=== PATIENT | male | born 1980 | race Caucasian/White ===

== ENCOUNTER 2017-12-17 14:46 | Emergency (ER) | payer OTHER ==
[~2017-12-17] VITALS: Ht 185.4 cm; Wt 72.6 kg
[~2017-12-17 14:46] MED LIST: ABX; ALPRAZOLAM PO; ATIVAN1 MG PO; BACTRIM DS TAB1 EACH PO; BACTROBAN CREAM30 G1 TOP; CARAFATE 1 GM TA1 G1 PO; CELEXA PO; CELEXA40 MG PO; CEPHALEXIN 500500 M2 PO; CIALIS2.5 MG PO; CITALOPRAM; FLEXERIL PO; K-DUR 20 MEQ T20 MEQ PO; KEFLEX500 MG PO; NEXIUM40 MG PO; NORCO 5-325 TA1 EAC1 PO; NORCO 5-325 TA1 EACH PO; PENICILLIN VK250 MG PO; PHENERGAN PO; REGLAN 10 MG TA10 MG PO; VALIUM5 MG PO; XANAX 0.25 MG0.25 MG PO; XANAX 0.5 MG0.5 MG PO; ZOFRAN4 MG PO
[2017-12-17 15:10] LABS: URINE BILIRUBIN NEGATIVE (Negative); URINE BLOOD NEGATIVE (Negative); URINE CLARITY CLEAR; URINE COLOR YELLOW; URINE GLUCOSE-RANDOM NEGATIVE (Negative); URINE KETONES NEGATIVE (Negative); URINE LEUKOCYTES-REFLEX NEGATIVE (Negative); URINE NITRITE-REFLEX NEGATIVE (Negative); URINE PROTEIN 2+ (Negative); URINE SPECIFIC GRAVITY 1.025 (1.005-1.030); URINE UROBILINOGEN 0.2 E.U./dl (0.2-1.0)
[2017-12-17 15:28] LABS: BACTERIA-REFLEX None Seen /HPF (None Seen); CASTS None Seen /LPF (None Seen); CRYSTALS None Seen /LPF (None Seen); SQUAMOUS NONE SEEN /LPF (0-3); URINE RBC None Seen /HPF (0-2); URINE WBC-REFLEX 0-5 Rare /HPF (0-5)
[2017-12-17] MEDS ORDERED: DOXYCYCLINE 10100 MG PO (15:49)
[2017-12-17 15:57] VITALS: BP 147/84
== END 2017-12-17 15:57 | disposition home or self-care (01) ==
LOC: M.ERS 14:46
PROVIDERS: Physician Assistant
DX: R05 Cough (principal); R36.9 Urethral discharge, unspecified; Z88.8 Allergy status to other drugs, medicaments and biological substances; F12.10 Cannabis abuse, uncomplicated

== ENCOUNTER 2018-09-30 22:27 | Emergency (ER) | payer OTHER ==
[~2018-09-30] VITALS: Ht 185.4 cm; Wt 72.6 kg
[~2018-09-30 22:27] MED LIST changes: +DOXYCYCLINE 10100 MG PO
[2018-09-30 23:12] VITALS: BP 124/80
== END 2018-09-30 23:14 | disposition home or self-care (01) ==
LOC: M.ERS 22:27
DX: S61.532D Puncture wound without foreign body of left wrist, subsequent encounter (principal); S41.131D Puncture wound without foreign body of right upper arm, subsequent encounter; F17.210 Nicotine dependence, cigarettes, uncomplicated; Z88.8 Allergy status to other drugs, medicaments and biological substances; W54.0XXD Bitten by dog, subsequent encounter

== ENCOUNTER 2018-11-13 23:01 | Emergency (ER) | payer OTHER ==
[~2018-11-13] VITALS: Ht 185.4 cm; Wt 74.8 kg
[2018-11-13] MEDS ORDERED: AUGMENTIN400 MG/53 PO (23:10)
[2018-11-13 23:58] LABS: URINE BILIRUBIN NEGATIVE (Negative); URINE BLOOD NEGATIVE (Negative); URINE CLARITY CLEAR; URINE COLOR YELLOW; URINE GLUCOSE-RANDOM NEGATIVE (Negative); URINE KETONES NEGATIVE (Negative); URINE LEUKOCYTES-REFLEX NEGATIVE (Negative); URINE NITRITE-REFLEX NEGATIVE (Negative); URINE PROTEIN NEGATIVE (Negative); URINE SPECIFIC GRAVITY >= 1.030 (1.005-1.030); URINE UROBILINOGEN 0.2 E.U./dl (0.2-1.0)
[2018-11-14 00:04] LABS: AMP/METHAMP POSITIVE (Negative); BARBITURATES Negative (Negative); BENZODIAZEPINES POSITIVE (Negative); COCAINE Negative (Negative); METHADONE Negative (Negative); OPIATES Negative (Negative); PCP Negative (Negative); THC POSITIVE (Negative)
[2018-11-14] MEDS ORDERED: PHENERGAN 25 MG25 M1 PO (00:44)
[2018-11-14] MEDS ORDERED: CIPROFLOXACIN500 M1 PO (00:44)
[2018-11-14 01:21] VITALS: BP 146/85
== END 2018-11-14 01:23 | disposition home or self-care (01) ==
LOC: M.ERS 23:01
PROVIDERS: Emergency Medicine
DX: N41.9 Inflammatory disease of prostate, unspecified (principal); Z88.8 Allergy status to other drugs, medicaments and biological substances; Z79.899 Other long term (current) drug therapy

== ENCOUNTER 2018-12-19 22:50 | Emergency (ER) | payer OTHER ==
[~2018-12-19] VITALS: Ht 185.4 cm; Wt 74.8 kg
[~2018-12-19 22:50] MED LIST changes: +AUGMENTIN400 MG/53 PO; +CIPROFLOXACIN500 M1 PO; +PHENERGAN 25 MG25 M1 PO
[2018-12-19] MEDS ORDERED: BACTRIM DS TAB1 EAC1 PO (23:27)
[2018-12-19 23:35] VITALS: BP 145/80
== END 2018-12-19 23:35 | disposition home or self-care (01) ==
LOC: M.ERS 22:50
DX: L03.113 Cellulitis of right upper limb (principal); F17.200 Nicotine dependence, unspecified, uncomplicated; Z88.8 Allergy status to other drugs, medicaments and biological substances

== ENCOUNTER 2019-02-21 16:37 | Emergency (ER) | payer OTHER ==
[~2019-02-21] VITALS: Ht 185.4 cm; Wt 70.3 kg
[~2019-02-21 16:37] MED LIST changes: +BACTRIM DS TAB1 EAC1 PO
[2019-02-21 16:43] VITALS: BP 134/85
[2019-02-21 18:02] LABS: ALBUMIN 3.4 g/dL (3.4-5.0); ALKALINE PHOSPHATASE 78 U/L (46-116); ANION GAP 11 mmol/L (7-16); BUN 20 mg/dL (7-18); CALCIUM 8.8 mg/dL (8.5-10.1); CHLORIDE 106 mmol/L (98-107); CO2 24 mmol/L (21-32); CREATININE 0.8 mg/dL (0.6-1.3); GLUCOSE 108 mg/dL (70-99); POTASSIUM 5.9 mmol/L (3.5-5.1); SGOT 41 U/L (15-37); SGPT 26 U/L (30-65); SODIUM 141 mmol/L (136-145); TOTAL BILIRUBIN 0.4 mg/dL (<0.1-1.0); TOTAL PROTEIN 6.7 g/dL (6.4-8.2); TROPONIN-I LEVEL <0.06 ng/mL (<0.06)
--- NOTE | 2019-02-22 12:31 | EKG ---
[place] [address] ELECTROCARDIOGRAM REPORT Name: VIKTOR BLAS Room: [facility]#: [id number] Admission: 02/21/19 Attend Phys: Discharge: 02/21/19 Date of : 78 Report #: [id number] THIS REPORT FOR: //name// [facility] ED Test Date: 2019-02-21 Test Time: 17:28:16 Pat Name: VIKTOR BLAS Department: Room: Gender: M Employment Security Officer: Vicki MARSHALL : 1980 Requested By: Stevan Holden Order Number: [id number] MD: Adonay Holt Measurements Intervals [place] Rate: 60 P: 70 AR: 136 QRS: 92 QRSD: 105 T: 67 QT: 419 QTc: 419 Interpretive Statements Sinus rhythm Borderline right axis deviation Probable left ventricular hypertrophy Baseline wander in lead(s) I Compared to ECG 02/19/2011 20:55:35 Prolonged QT interval no longer present Electronically Signed On 02-22-2019 12:31:14 CDT by Adonay Holt [email or web address] <ELECTRONICALLY SIGNED> By: Adonay Holt MD, [facility] 02/22/19 1231 1728 1728 Adonay Holt MD, [facility] /EPI
== END 2019-02-21 17:40 | disposition left against medical advice (07) ==
LOC: M.ERS 16:37
PROVIDERS: Nurse Practitioner Family
DX: R42 Dizziness and giddiness (principal); F17.200 Nicotine dependence, unspecified, uncomplicated; Z88.8 Allergy status to other drugs, medicaments and biological substances

== ENCOUNTER 2019-05-30 17:05 | Emergency (ER) | payer OTHER ==
[~2019-05-30] VITALS: Ht 185.4 cm; Wt 74.8 kg
[2019-05-30 17:51] LABS: URINE BILIRUBIN NEGATIVE (Negative); URINE BLOOD NEGATIVE (Negative); URINE CLARITY CLEAR; URINE COLOR YELLOW; URINE GLUCOSE-RANDOM NEGATIVE (Negative); URINE KETONES NEGATIVE (Negative); URINE LEUKOCYTES-REFLEX NEGATIVE (Negative); URINE NITRITE-REFLEX NEGATIVE (Negative); URINE PROTEIN NEGATIVE (Negative); URINE SPECIFIC GRAVITY >= 1.030 (1.005-1.030); URINE UROBILINOGEN 0.2 E.U./dl (0.2-1.0)
[2019-05-30] MEDS ORDERED: DOXYCYCLINE 10100 MG PO (18:45)
[2019-05-30] MEDS ORDERED: PHENERGAN 25 MG25 M1 PO (18:54)
[2019-05-30 19:04] VITALS: BP 130/60
== END 2019-05-30 19:05 | disposition home or self-care (01) ==
LOC: M.ERS 17:05
PROVIDERS: Nurse Practitioner Family
DX: J06.9 Acute upper respiratory infection, unspecified (principal); N34.2 Other urethritis; Z88.8 Allergy status to other drugs, medicaments and biological substances

== ENCOUNTER 2020-01-11 23:35 | Emergency (ER) | payer OTHER ==
[~2020-01-11] VITALS: Ht 185.4 cm; Wt 74.8 kg
[2020-01-12] MEDS ORDERED: MUPIROCIN1 GM TOP (00:02)
[2020-01-12] MEDS ORDERED: BACTRIM DS TAB1 EACH PO (00:02)
[2020-01-12] MEDS ORDERED: LORCET 5-325 M1 EACH PO (00:03)
[2020-01-12 00:52] VITALS: BP 120/78
== END 2020-01-12 00:52 | disposition home or self-care (01) ==
LOC: M.ERS 23:35
DX: L03.115 Cellulitis of right lower limb (principal); J34.0 Abscess, furuncle and carbuncle of nose; M25.461 Effusion, right knee

== ENCOUNTER 2020-02-19 20:12 | Emergency (ER) | payer OTHER ==
[~2020-02-19] VITALS: Ht 182.9 cm; Wt 74.8 kg
[~2020-02-19 20:12] MED LIST changes: +LORCET 5-325 M1 EACH PO; +MUPIROCIN1 GM TOP
[2020-02-19 21:24] LABS: URINE BILIRUBIN NEGATIVE (Negative); URINE BLOOD NEGATIVE (Negative); URINE CLARITY CLEAR; URINE COLOR YELLOW; URINE GLUCOSE-RANDOM NEGATIVE (Negative); URINE KETONES NEGATIVE (Negative); URINE LEUKOCYTES-REFLEX NEGATIVE (Negative); URINE NITRITE-REFLEX NEGATIVE (Negative); URINE PROTEIN NEGATIVE (Negative); URINE SPECIFIC GRAVITY >= 1.030 (1.005-1.030); URINE UROBILINOGEN 0.2 E.U./dl (0.2-1.0)
[2020-02-19 22:26] VITALS: BP 129/89
== END 2020-02-19 22:27 | disposition home or self-care (01) ==
LOC: M.ERS 20:12
PROVIDERS: Emergency Medicine
DX: R35.0 Frequency of micturition (principal); R39.15 Urgency of urination; Z20.2 Contact with and (suspected) exposure to infections with a predominantly sexual mode of transmission; Z88.8 Allergy status to other drugs, medicaments and biological substances

== ENCOUNTER 2021-03-20 19:45 | Emergency (ER) | payer OTHER ==
[~2021-03-20] VITALS: Ht 185.4 cm; Wt 72.6 kg
[2021-03-20] MEDS ORDERED: AMOXICILLIN 50500 MG PO (20:14)
[2021-03-20] MEDS ORDERED: IBUPROFEN 800800 M1 PO (20:14)
[2021-03-20 20:50] VITALS: BP 115/82
[2021-03-21] MEDS ORDERED: IBUPROFEN 800800 M1 PO (10:52)
[2021-03-21] MEDS ORDERED: NORCO5 PO (10:52)
[2021-03-21] MEDS ORDERED: PENICILLIN V P500 MG PO (10:52)
== END 2021-03-20 20:50 | disposition home or self-care (01) ==
LOC: M.ERS 19:45
DX: K02.9 Dental caries, unspecified (principal); F17.210 Nicotine dependence, cigarettes, uncomplicated; Z88.8 Allergy status to other drugs, medicaments and biological substances

== ENCOUNTER 2021-03-21 10:26 | Emergency (ER) | payer OTHER ==
[~2021-03-21] VITALS: Ht 185.4 cm; Wt 72.6 kg
[~2021-03-21 10:26] MED LIST changes: +AMOXICILLIN 50500 MG PO; +IBUPROFEN 800800 M1 PO
[2021-03-21] MEDS ORDERED: NORCO5 PO (10:52)
[2021-03-21] MEDS ORDERED: IBUPROFEN 800800 M1 PO (10:52)
[2021-03-21] MEDS ORDERED: PENICILLIN V P500 MG PO (10:52)
[2021-03-21 11:20] VITALS: BP 162/99
[2021-03-22] MEDS ORDERED: ONDANSETRON HCL4 M2 PO (16:02)
[2021-03-22] MEDS ORDERED: CLEOCIN HCL300 MG PO (16:02)
== END 2021-03-21 11:20 | disposition home or self-care (01) ==
LOC: M.ERS 10:26
DX: K02.9 Dental caries, unspecified (principal); Z88.8 Allergy status to other drugs, medicaments and biological substances

== ENCOUNTER 2021-03-22 15:04 | Emergency (ER) | payer OTHER ==
[~2021-03-22] VITALS: Ht 185.4 cm; Wt 72.6 kg
[~2021-03-22 15:04] MED LIST changes: +NORCO5 PO; +PENICILLIN V P500 MG PO
[2021-03-22] MEDS ORDERED: CLEOCIN HCL300 MG PO (16:02)
[2021-03-22] MEDS ORDERED: ONDANSETRON HCL4 M2 PO (16:02)
[2021-03-22 16:15] VITALS: BP 133/72
== END 2021-03-22 16:15 | disposition home or self-care (01) ==
LOC: M.ERS 15:04
DX: K04.7 Periapical abscess without sinus (principal); T50.995A Adverse effect of other drugs, medicaments and biological substances, initial encounter; Z88.0 Allergy status to penicillin; Z88.8 Allergy status to other drugs, medicaments and biological substances; Y92.89 Other specified places as the place of occurrence of the external cause

== ENCOUNTER 2021-06-08 12:37 | Emergency (ER) | payer OTHER ==
[~2021-06-08] VITALS: Ht 182.9 cm; Wt 74.8 kg
[~2021-06-08 12:37] MED LIST changes: +CLEOCIN HCL300 MG PO; +ONDANSETRON HCL4 M2 PO
[2021-06-08 13:43] VITALS: BP 134/72
== END 2021-06-08 13:43 | disposition home or self-care (01) ==
LOC: M.ERS 12:37
DX: U07.1 COVID-19 (principal); Z88.8 Allergy status to other drugs, medicaments and biological substances

== ENCOUNTER → 2021-12-05 | Emergency (ER) | payer OTHER ==
[~2021-12-05] VITALS: Ht 182.9 cm; Wt 74.8 kg
[~2021-12-05] MED LIST changes: +HYDROCODON-ACE1 EAC7 PO
[2021-12-05 16:11] VITALS: BP 110/70
== END ==
LOC: M.ERS 15:19
DX: K04.7 Periapical abscess without sinus (principal); Z88.0 Allergy status to penicillin

== ENCOUNTER 2021-12-13 16:55 | Emergency (ER) | payer OTHER ==
[~2021-12-13] VITALS: Ht 185.4 cm; Wt 74.8 kg
[2021-12-13 17:00] VITALS: BP 113/66
[2021-12-13] MEDS ORDERED: AMOX TR-K CLV1 EAC4 PO (17:16)
[2021-12-13] MEDS ORDERED: HYDROCODON-ACE1 EAC7 PO (17:27)
== END 2021-12-13 17:48 | disposition home or self-care (01) ==
LOC: M.ERS 16:55
DX: K04.7 Periapical abscess without sinus (principal); Z79.899 Other long term (current) drug therapy; Z88.8 Allergy status to other drugs, medicaments and biological substances; Z88.0 Allergy status to penicillin